=== PATIENT | male | born 1995 | race African-American/Black ===

== ENCOUNTER 2020-08-24 13:25 | Emergency (ER) | payer MEDICARE ==
[~2020-08-24] VITALS: Ht 180.3 cm; Wt 109.0 kg
[2020-08-24] MEDS ORDERED: seroquel (13:39)
[2020-08-24] MEDS ORDERED: geodon (13:39)
[2020-08-24 16:24] LABS: HEMATOCRIT. 38.5 % (42.0-52.0); HEMOGLOBIN. 13.2 g/dL (14.0-18.0); MEAN CORPUSCULAR HEMOGLOBIN 30.6 pg (28.0-32.0); MEAN CORPUSCULAR VOLUME 89.4 fL (80.0-94.0); MEAN PLATELET VOLUME 9.2 fl (7.4-10.4); PLATELET 207 x1000/uL (130-400); RED BLOOD CELL COUNT 4.31 mill/uL (4.7-6.1); RED CELL DISTRIBUTION WIDTH 14.5 % (11.6-14.6)
[2020-08-24 16:31] LABS: CHLORIDE 109 mEq/L (98-107)
[2020-08-24 16:35] LABS: ETHANOL BLOOD < 10 mg/dL
[2020-08-24 16:48] LABS: CLARITY URINE CLEAR (CLEAR); COLOR URINE YELLOW (YELLOW); KETONES URINE TRACE (NEGATIVE); LEUKOCYTE ESTERASE URINE NEGATIVE (NEGATIVE); NITRITE URINE NEGATIVE (NEGATIVE); OCCULT BLOOD URINE NEGATIVE (NEGATIVE); PROTEIN URINE NEGATIVE (NEGATIVE); SPECIFIC GRAVITY URINE 1.018 (1.005-1.030)
[2020-08-24 17:12] LABS: *AMPHETAMINES SCREEN URINE NEGATIVE (NEGATIVE); *BARBITURATES SCREEN URINE NEGATIVE (NEGATIVE); *BENZODIAZEPINES SCREEN URINE NEGATIVE (NEGATIVE); *COCAINE SCREEN URINE NEGATIVE (NEGATIVE); METHADONE URINE SCREEN NEGATIVE (NEGATIVE); OPIATES URINE SCREEN NEGATIVE (NEGATIVE)
[2020-08-24 17:13] LABS: CANNABINOID URINE SCREEN NEGATIVE (NEGATIVE); PHENCYCLIDINE URINE SCREEN NEGATIVE (NEGATIVE)
[2020-08-24 17:58] LABS: PLATELET ESTIMATE NORMAL
[2020-08-24] MEDS ORDERED: LORAZEPAM 1MG TABLET PO PRN (19:15)
[2020-08-24] MEDS ORDERED: QUETIAPINE FUMARATE 50MG TABLET PO SCH (21:00)
[2020-08-24] MEDS: ZIPRASIDONE HCL 40MG CAPSULE PO SCH (21:42)
[2020-08-24] MEDS: QUETIAPINE FUMARATE 50MG TABLET PO SCH (21:43)
[2020-08-25] MEDS ORDERED: BUPROPION HCL 150MG TABLET XL 24HR PO SCH (09:00)
[2020-08-25] MEDS: QUETIAPINE FUMARATE 50MG TABLET PO SCH (09:54)
[2020-08-25] MEDS: ZIPRASIDONE HCL 40MG CAPSULE PO SCH ×2 (09:59→17:48)
[2020-08-25 21:58] VITALS: BP 145/72
[2020-08-29] MEDS ORDERED: ZIPRASIDONE HCL 80MG CAPSULE PO SCH (09:00)
== END 2020-08-25 21:59 | disposition home or self-care (01) ==
LOC: ER 14:15
DX: F20.9 Schizophrenia, unspecified (principal); R45.851 Suicidal ideations; F32.9 Major depressive disorder, single episode, unspecified; Z20.822 Contact with and (suspected) exposure to COVID-19; Z91.14 Patient's other noncompliance with medication regimen
CPT/HCPCS: 36415; 80053; 80305; 80307; 80320; 80329; 81003; 85025; 99285; C9803; U0003; U0005; G0480

== ENCOUNTER 2020-08-27 03:03 | Emergency (ER) | payer MEDICARE ==
[~2020-08-27] VITALS: Ht 180.3 cm; Wt 149.0 kg
[~2020-08-27 03:03] MED LIST: geodon; seroquel
[2020-08-27 03:47] LABS: BASOPHILS % 0.5 % (0.0-2.0); EOSINOPHILS % 2.8 % (0.0-5.0); HEMATOCRIT. 41.6 % (42.0-52.0); HEMOGLOBIN. 14.2 g/dL (14.0-18.0); LYMPHOCYTES % 30.5 % (20.0-50.0); MEAN CORPUSCULAR HEMOGLOBIN 30.7 pg (28.0-32.0); MEAN CORPUSCULAR VOLUME 89.6 fL (80.0-94.0); MEAN PLATELET VOLUME 8.8 fl (7.4-10.4); NEUTROPHILS % 58.2 % (40.0-76.0); PLATELET 198 x1000/uL (130-400); RED BLOOD CELL COUNT 4.64 mill/uL (4.7-6.1); RED CELL DISTRIBUTION WIDTH 14.8 % (11.6-14.6)
[2020-08-27 03:54] LABS: CHLORIDE 110 mEq/L (98-107)
[2020-08-27 03:59] LABS: ETHANOL BLOOD < 10 mg/dL
[2020-08-27 04:02] LABS: *AMPHETAMINES SCREEN URINE NEGATIVE (NEGATIVE); *BARBITURATES SCREEN URINE NEGATIVE (NEGATIVE); *BENZODIAZEPINES SCREEN URINE NEGATIVE (NEGATIVE); *COCAINE SCREEN URINE NEGATIVE (NEGATIVE); CANNABINOID URINE SCREEN NEGATIVE (NEGATIVE); OPIATES URINE SCREEN NEGATIVE (NEGATIVE); PHENCYCLIDINE URINE SCREEN NEGATIVE (NEGATIVE)
[2020-08-27 04:03] LABS: METHADONE URINE SCREEN NEGATIVE (NEGATIVE)
[2020-08-27 15:31] LABS: CLARITY URINE CLEAR (CLEAR); COLOR URINE YELLOW (YELLOW); KETONES URINE NEGATIVE (NEGATIVE); LEUKOCYTE ESTERASE URINE NEGATIVE (NEGATIVE); NITRITE URINE NEGATIVE (NEGATIVE); OCCULT BLOOD URINE NEGATIVE (NEGATIVE); PH URINE 6.5 (4.5-8.0); PROTEIN URINE NEGATIVE (NEGATIVE); SPECIFIC GRAVITY URINE 1.022 (1.005-1.030); UROBILINOGEN URINE 0.2 E.U./dL (0.2-1.0)
[2020-08-28] MEDS ORDERED: LORAZEPAM 1MG TABLET PO PRN (19:00)
[2020-08-28] MEDS ORDERED: ZIPRASIDONE HCL 80MG CAPSULE PO SCH (21:00)
[2020-08-28] MEDS ORDERED: QUETIAPINE FUMARATE 25MG TABLET PO SCH (21:00)
[2020-08-28] MEDS: QUETIAPINE FUMARATE 50MG TABLET PO SCH (21:16)
[2020-08-29] MEDS ORDERED: BUPROPION HCL 150MG TABLET XL 24HR PO SCH (09:00)
[2020-08-29] MEDS: ZIPRASIDONE HCL 40MG CAPSULE PO SCH ×2 (10:38→17:12)
[2020-08-29] MEDS: QUETIAPINE FUMARATE 50MG TABLET PO SCH (21:00)
[2020-08-29 22:35] VITALS: BP 141/95
== END 2020-08-29 22:40 | disposition home or self-care (01) ==
LOC: ER 03:03
DX: R45.851 Suicidal ideations (principal); F32.9 Major depressive disorder, single episode, unspecified; F20.9 Schizophrenia, unspecified; R94.31 Abnormal electrocardiogram [ECG] [EKG]; Z20.822 Contact with and (suspected) exposure to COVID-19
CPT/HCPCS: 36415; 80053; 80305; 80307; 80320; 80329; 81003; 85025; 93005; 99285; C1893; C9803; U0003; U0005; G0480